=== PATIENT | male | born 1955 | race Caucasian/White ===

== ENCOUNTER 2019-01-10 13:18 | Emergency (ER) | payer MEDICARE, OTHER ==
[~2019-01-10] VITALS: Ht 177.8 cm; Wt 74.2 kg
[2019-01-10] MEDS ORDERED: NS IV 1000 ML 1,000 ML IV SCH (13:33)
[2019-01-10 13:42] LABS: WHITE BLOOD COUNT 9.2 10^3/uL (4.3-11.0)
[2019-01-10 13:43] LABS: BASOPHILS # (AUTO) 0.1 10^3/uL (0.0-0.1); BASOPHILS % (AUTO) 1 % (0-10); EOSINOPHILS # (AUTO) 0.2 10^3/uL (0.0-0.3); EOSINOPHILS % (AUTO) 2 % (0-10); HEMATOCRIT 43 % (40-54); HEMOGLOBIN 14.7 G/DL (13.3-17.7); LYMPHOCYTES # (AUTO) 1.4 X 10^3 (1.0-4.0); LYMPHOCYTES % (AUTO) 16 % (12-44); MEAN CORPUSCULAR HEMOGLOBIN 32 PG (25-34); MEAN CORPUSCULAR HGB CONC 34 G/DL (32-36); MEAN CORPUSCULAR VOLUME 92 FL (80-99); MEAN PLATELET VOLUME 10.3 FL (7.4-10.4); MONOCYTES # (AUTO) 0.8 X 10^3 (0.0-1.0); MONOCYTES % (AUTO) 9 % (0-12); NEUTROPHILS # (AUTO) 6.6 X 10^3 (1.8-7.8); NEUTROPHILS % (AUTO) 72 % (42-75); PLATELET COUNT 176 10^3/uL (130-400); RED CELL DISTRIBUTION WIDTH 12.1 % (10.0-14.5)
[2019-01-10] MEDS ORDERED: ONDANSETRON 4 MG/2 ML (SDV) Z0FRAN IVP ONE (13:45)
[2019-01-10] MEDS ORDERED: KETOROLAC 30 MG/ML VIAL IVP ONE (13:45)
[2019-01-10] MEDS ORDERED: IOHEXOL 350 MG/ML 100 ML (OMNIPAQUE 350) VIAL IV ONE (14:00)
[2019-01-10] MEDS ORDERED: NS 100 ML (IVPB) BAG IV ONE (14:00)
[2019-01-10] MEDS ORDERED: HOLD METFORMIN - RECEIVED CONTRAST 20 ML VIAL IV SCH (14:00)
--- NOTE | 2019-01-10 14:05 | NUR ---
Per doctor's order - appointment with Dr. Munoz was made for tomorrow (Wednesday, January 10, 2019) at 0930.
--- NOTE | 2019-01-10 14:20 | ED Abdominal Pain ---
General Chief Complaint: Abdominal/GI Problems Stated Complaint: ABD PAIN Nursing Triage Note: Patient c/o left upper quadrant abdomnial pain. States his pain started Wednesday night and it comes and goes. He was seen yesterday at [facility] and labs were drawn. Today he was called and told that he needed to be evaluated in the ED because his amylase was elevated. He also reports a low grade temperature. Sepsis Screen: No Definite Risk History of Present Illness Date Seen by Provider: Jan 10, 2019 Time Seen by Provider: 13:14 Initial Comments The patient is a 63-year-old male who is a nonsmoker and a nondrinker and has no significant past medical history. He presents with concern for acute onset of crampy, sharp left upper quadrant abdominal discomfort which is nonradiating and was initially rather severe but has resolved over the past couple of days to the point where it is quite bearable. Symptoms had onset just over 3 days ago. Patient has never had discomfort like this before. Associated nausea with 1 episode of nonbloody vomiting several days ago but no issues with vomiting since then. No associated fevers, cough, shortness of breath or chest pain, right- sided or lower abdominal pain, flank pain, back pain, dysuria or hematuria, changes in bowel habits aside from some mild constipation over the last 1 day. Patient had labs drawn at [facility] clinic yesterday and these are reviewed and reveal no acute abnormalities aside from a markedly elevated lipase. Patient was con tacted this morning and instructed to present to the emergency department for further evaluation. Upon initial evaluation in the emergency department he appears quite comfortable and in no acute distress and reports that he has been tolerating food and fluids without any difficulty and that pain is only about a 2 out of 10 in severity. Allergies and Home Medications Allergies Coded Allergies: No Known Drug Allergies (Unverified , 01/10/19) Patient Home Medication List Home Medication List Reviewed: Yes Review of Systems Review of Systems Constitutional: see HPI All Other Systems Reviewed Negative Unless Noted: Yes (Negative excepted noted.) Past Kfmtaoy-Nzeekj-Zzvugf Hx Past Med/Social Hx: Reviewed Nursing Past Med/Soc Hx Patient Social History Alcohol Use: Denies Use Recreational Drug Use: No Smoking Status: Never a Smoker 2nd Hand Smoke Exposure: No Recent Foreign Travel: No Contact w/Someone Who Travel: No Recent Infectious Disease Expo: No Recent Hopitalizations: No Physical Abuse: No Sexual Abuse: No Mistreated: No Fear: No Seasonal Allergies Seasonal Allergies: No Past Medical History Surgeries: Yes Eye Surgery Respiratory: No Cardiac: No Neurological: No Genitourinary: No Gastrointestinal: No Musculoskeletal: No Endocrine: No HEENT: Yes (Bilateral Retina detachment) Glaucoma Loss of Vision: Denies Cancer: No Psychosocial: No Integumentary: No Blood Disorders: No Family Medical History Reviewed Nursing Family Hx Physical Exam Vital Signs Vital Signs - First Documented 01/10/19 13:23 Temp 37.1 Pulse 93 Resp 16 B/P (MAP) 154/84 (107) Pulse Ox 97 O2 Delivery Room Air Capillary Refill : Less Than 3 Seconds Height/Weight/BMI Height: '" Weight: lbs. oz. kg; 23.00 BMI Method: General Appearance: no apparent distress Exam Comments This is an older male appearing nontoxic infant in absolutely no acute distress. Head is normocephalic and atraumatic. Neck is supple and nontender. Oropharynx is moist. Lungs are clear to auscultation in all stations. There is a normal S1 and S2 without rubs or gallops and capillary refills appropriate, less than 2 seconds globally. Abdomen is soft and non-distended with very mild left upper quadrant tenderness to palpation without rebound or guarding. Skin is warm and dry without cyanosis, clubbing or edema. Psychiatrically, the patient doesn't straights appropriate mood and affect and is alert. Progress/Results/Core Measures Results/Orders Lab Results Laboratory Tests Test 01/10/19 13:25 01/10/19 14:38 Range/Units White Blood Count 9.2 4.3-11.0 10^3/uL Red Blood Count 4.66 4.35-5.85 10^6/uL Hemoglobin 14.7 13.3-17.7 G/DL Hematocrit 43 40-54 % Mean Corpuscular Volume 92 80-99 FL Mean Corpuscular Hemoglobin 32 25-34 PG Mean Corpuscular Hemoglobin Concent 34 32-36 G/DL Red Cell Distribution Width 12.1 10.0-14.5 % Platelet Count 176 130-400 10^3/uL Mean Platelet Volume 10.3 7.4-10.4 FL Neutrophils (%) (Auto) 72 42-75 % Lymphocytes (%) (Auto) 16 12-44 % Monocytes (%) (Auto) 9 0-12 % Eosinophils (%) (Auto) 2 0-10 % Basophils (%) (Auto) 1 0-10 % Neutrophils # (Auto) 6.6 1.8-7.8 X 10^3 Lymphocytes # (Auto) 1.4 1.0-4.0 X 10^3 Monocytes # (Auto) 0.8 0.0-1.0 X 10^3 Eosinophils # (Auto) 0.2 0.0-0.3 10^3/uL Basophils # (Auto) 0.1 0.0-0.1 10^3/uL Sodium Level 138 135-145 MMOL/L Potassium Level 4.1 3.6-5.0 MMOL/L Chloride Level 101 98-107 MMOL/L Carbon Dioxide Level 28 21-32 MMOL/L Anion Gap 9 5-14 MMOL/L Blood Urea Nitrogen 14 7-18 MG/DL Creatinine 1.07 0.60-1.30 MG/DL Estimat Glomerular Filtration Rate > 60 BUN/Creatinine Ratio 13 Glucose Level 117 H 70-105 MG/DL Calcium Level 9.5 8.5-10.1 MG/DL Corrected Calcium 9.2 8.5-10.1 MG/DL Total Bilirubin 0.4 0.1-1.0 MG/DL Aspartate Amino Transf (AST/SGOT) 17 5-34 U/L Alanine Aminotransferase (ALT/SGPT) 16 0-55 U/L Alkaline Phosphatase 58 40-136 U/L Troponin I < 0.30 <0.30 NG/ML Total Protein 7.4 6.4-8.2 GM/DL Albumin 4.4 3.2-4.5 GM/DL Lipase 96 H 8-78 U/L Urine Color YELLOW Urine Clarity CLEAR Urine pH 5.5 5-9 Urine Specific [place] <1.005 1.016-1.022 Urine Protein NEGATIVE NEGATIVE Urine Glucose (UA) NEGATIVE NEGATIVE Urine Ketones NEGATIVE NEGATIVE Urine Nitrite NEGATIVE NEGATIVE Urine Bilirubin NEGATIVE NEGATIVE Urine Urobilinogen 0.2 NORMAL MG/DL Urine Leukocyte Esterase NEGATIVE NEGATIVE Urine RBC (Auto) TRACE H NEGATIVE Urine RBC RARE /HPF Urine WBC RARE /HPF Urine Squamous Epithelial Cells RARE /HPF Urine Crystals NONE /LPF Urine Bacteria NONE /HPF Urine Casts NONE /LPF Urine Mucus NEGATIVE /LPF Urine Culture Indicated NO My Orders Orders - GAB COLLIER MD Cbc With Automated Diff (01/10/19 13:33) Comprehensive Metabolic Panel (01/10/19 13:33) Lipase (01/10/19 13:33) Troponin I (01/10/19 13:33) Ekg Tracing (01/10/19 13:33) Ua Culture If Indicated (01/10/19 13:33) Ketorolac Injection (Toradol Injection) (01/10/19 13:45) Ed Iv/Invasive Line Start (01/10/19 13:33) Ns Iv 1000 Ml (Sodium Chloride 0.9%) (01/10/19 13:33) Ondansetron Injection (Zofran Injectio (01/10/19 13:45) Ct Abdomen/Pelvis W (01/10/19 13:56) Iohexol Injection (Omnipaque 350 Mg/Ml 1 (01/10/19 14:00) Received Contrast (Hold Metformin- Contr (01/10/19 14:00) Ns (Ivpb) (Sodium Chloride 0.9% Ivpb Bag (01/10/19 14:00) Medications Given in ED Current Medications Medications Dose Ordered Sig/Puja Route Start Time Stop Time Status Last Admin Dose Admin Iohexol 100 ml ONCE ONCE IV 01/10/19 14:00 01/10/19 14:04 DC 01/10/19 14:23 100 ML Ketorolac Tromethamine 30 mg ONCE ONCE IVP 01/10/19 13:45 01/10/19 13:46 DC 01/10/19 13:58 30 MG Ondansetron HCl 4 mg ONCE ONCE IVP 01/10/19 13:45 01/10/19 13:46 DC 01/10/19 13:58 4 MG Sodium Chloride 100 ml ONCE ONCE IV 01/10/19 14:00 01/10/19 14:04 DC 01/10/19 14:23 80 ML Vital Signs/I&O 01/10/19 13:23 Temp 37.1 Pulse 93 Resp 16 B/P (MAP) 154/84 (107) Pulse Ox 97 O2 Delivery Room Air Blood Pressure Mean: 107 Progress Progress Note : Time: 14:20 Progress Note Very well-appearing 63-year-old male without comorbidities who presents with clinical history, examination and laboratory findings consistent with acute pancreatitis. Unclear etiology at this time as patient is a nondrinker and there are no LFT abnormalities suggestive of acute gallstone pancreatitis, although this cannot be ruled out without further testing. Patient's pain is controlled and he is tolerating food and fluids by mouth with no difficulty. I do not see a clear indication for hospital admission at this time. We will recheck labs to ensure stability or improvement and will obtain CT imaging of the abdomen and pelvis to further characterize the patient's episode of pancreatitis, and will then reevaluate. We'll give Toradol, Zofran and a liter of IV fluids. If workup is reassuring, plan will likely be for discharge home to follow up tomorrow in the clinic for reassessment. Patient and family understand and agree with this plan of care. Update 1500: Patient resting comfortably upon reassessment. Labs unremarkable aside from extremely mild elevation in lipase consistent with appropriately resolving mild pancreatitis. CT scan with radiographic evidence of pancreatitis but without biliary tree or gallbladder abnormalities of any kind and without other acute findings noted. Plan will be for discharge home to follow up tomorrow and appointment which is arty been made for the patient with Dr. florez. He understands that if he feels worse instead of better or develops other new s ymptoms of concern that he needs to return immediately for reevaluation. He may use [id number] medications for pain control and I will prescribe Zofran for nausea. All questions are answered. Diagnostic Imaging Comments CT ABDOMEN/PELVIS W PROCEDURE: CT abdomen and pelvis with contrast. TECHNIQUE: Multiple contiguous axial images were obtained through the abdomen and pelvis after administration of intravenous contrast. Auto Exposure Controls were utilized during the CT exam to meet ALARA standards for radiation dose reduction. INDICATION: Mid abdominal pain. COMPARISON: No priors. FINDINGS: There is some questionable thickening of the tail of the pancreas with borderline findings of peripancreatic edema adjacent to its tail. There is slight thickening of the left lateral conal fascia. The overall findings raise the question of subtle early CT changes of mild pancreatitis; correlate with relevant lab studies. There is no bile duct dilatation. The liver's density is unremarkable. The gallbladder is contracted. There is no acute fluid collection, pseudocyst, necrosis, or evidence for abscess. The spleen and adrenals are negative. The kidneys are unobstructed and unremarkable aside from small left cortical cyst. The aortoiliac vessels are atherosclerotic but nonaneurysmal and unobstructed. There is no abdominal or pelvic ascites. No pneumatosis. No free air. No obstruction. No appendicitis or diverticulitis. IMPRESSION: Questionable findings for subtle early changes of pancreatitis at the level of its tail. No other potential acute finding is revealed. No pseudocyst or other acute fluid collection. No biliary abnormality. Dictated on workstation # [id number] Departure Impression Primary Impression: Acute pancreatitis Disposition: 01 HOME, SELF-CARE Condition: Improved Departure-Patient Inst. Referrals: SELFMENDEL MD (PCP/Family) Primary Care Physician Patient Instructions: Pancreatitis Scripts Ondansetron (Ondansetron Odt) 4 Mg Tab.rapdis 4 MG PO Q8H for nausea, #10 TAB Prov: GAB COLLIER MD 01/10/19 GBA COLLIER MD Jan 10, 2019 14:20
[2019-01-10 14:29] LABS: ALANINE AMINOTRANSFERASE 16 U/L (0-55); ALBUMIN 4.4 GM/DL (3.2-4.5); ALKALINE PHOSPHATASE 58 U/L (40-136); BILIRUBIN,TOTAL 0.4 MG/DL (0.1-1.0); BUN/CREATININE RATIO 13; CALCIUM 9.5 MG/DL (8.5-10.1); CARBON DIOXIDE 28 MMOL/L (21-32); CHLORIDE 101 MMOL/L (98-107); CREATININE SERUM 1.07 MG/DL (0.60-1.30); GFR ESTIMATED > 60; GLUCOSE 117 MG/DL (70-105); LIPASE 96 U/L (8-78); POTASSIUM 4.1 MMOL/L (3.6-5.0); SODIUM 138 MMOL/L (135-145); TOTAL PROTEIN 7.4 GM/DL (6.4-8.2)
--- NOTE | 2019-01-10 14:39 | Diagnostic Imaging Report ---
PROCEDURE: CT abdomen and pelvis with contrast. TECHNIQUE: Multiple contiguous axial images were obtained through the abdomen and pelvis after administration of intravenous contrast. Auto Exposure Controls were utilized during the CT exam to meet ALARA standards for radiation dose reduction. INDICATION: Mid abdominal pain. COMPARISON: No priors. FINDINGS: There is some questionable thickening of the tail of the pancreas with borderline findings of peripancreatic edema adjacent to its tail. There is slight thickening of the left lateral conal fascia. The overall findings raise the question of subtle early CT changes of mild pancreatitis; correlate with relevant lab studies. There is no bile duct dilatation. The liver's density is unremarkable. The gallbladder is contracted. There is no acute fluid collection, pseudocyst, necrosis, or evidence for abscess. The spleen and adrenals are negative. The kidneys are unobstructed and unremarkable aside from small left cortical cyst. The aortoiliac vessels are atherosclerotic but nonaneurysmal and unobstructed. There is no abdominal or pelvic ascites. No pneumatosis. No free air. No obstruction. No appendicitis or diverticulitis. IMPRESSION: Questionable findings for subtle early changes of pancreatitis at the level of its tail. No other potential acute finding is revealed. No pseudocyst or other acute fluid collection. No biliary abnormality. Dictated by: Dictated on workstation # [id number]
[2019-01-10 14:49] LABS: CLARITY,URINE CLEAR; COLOR,URINE YELLOW; PH,URINE 5.5 (5-9)
[2019-01-10 14:50] LABS: BILIRUBIN,URINE NEGATIVE (NEGATIVE); GLUCOSE, URINE (UA) NEGATIVE (NEGATIVE); KETONES,URINE NEGATIVE (NEGATIVE); LEUKOCYTE ESTERASE ,URINE NEGATIVE (NEGATIVE); NITRITE,URINE NEGATIVE (NEGATIVE); PROTEIN,URINE NEGATIVE (NEGATIVE); RBC,URINE RARE /HPF; SQUAMOUS EPITHELIAL CELL,UR RARE /HPF; UROBILINOGEN,URINE 0.2 MG/DL (NORMAL); WBC,URINE RARE /HPF
[2019-01-10] MEDS ORDERED: ONDA4TAB11 PO (15:10)
[2019-01-10 15:23] VITALS: BP 140/84
== END 2019-01-10 15:23 | disposition home or self-care (01) ==
LOC: ER FS 13:21
DX: K85.90 Acute pancreatitis without necrosis or infection, unspecified (principal)
CPT/HCPCS: 36415; 74177; 80053; 81000; 83690; 84484; 85025; 93005; 96361; 96374; 96375